=== PATIENT | male | born 1990 | race Caucasian/White ===

== ENCOUNTER 2021-11-22 13:08 | Emergency (ER) | payer OTHER ==
[~2021-11-22] VITALS: Ht 180.3 cm; Wt 118.5 kg
[2021-11-22 13:12] VITALS: BP 136/79
--- NOTE | 2021-11-22 13:42 | NUR ---
PT AMBULATED TO BED 4
--- NOTE | 2021-11-22 13:44 | NUR ---
XR AT PT BEDSIDE
--- NOTE | 2021-11-22 13:50 | NUR ---
31 Y/O MALE BIB SELF DUE TO L SHOULDER PAIN AND POSSIBLE DISLOCATION. PER PATIENT HE FELT/HEARD A POP IN HIS L SHOULDER LAST THURSDAY. PT STATED HE HAS LIMITED MOBILITY IN HIS L SHOUDLER AT THIS TIME. PT DENIES TAKING MEDICATION PRIOR TO ARRIVAL TO ED. PT DENIES CHEST PAIN, SOB. PMH: DENIES NKA
--- NOTE | 2021-11-22 14:09 | NUR ---
PATIENT LEFT WITHOUT BEING SEEN BY DR. TINAJERO. NO FURTHER CARE PROVIDED FOR PATIENT.
--- NOTE | 2021-11-22 14:09 | NUR ---
PT STATED "IT DOESNT TAKE 3 HOURS TO POP A SHOULDER BACK IN". PT HAS BEEN HERE FOR LESS THAN 1 HR. ERMD MADE AWARE.
== END 2021-11-22 14:09 | disposition left against medical advice (07) ==
LOC: MED 13:08
DX: M25.512 Pain in left shoulder (principal); Z53.21 Procedure and treatment not carried out due to patient leaving prior to being seen by health care provider
CPT/HCPCS: 73030; 99281; 99283